=== PATIENT | male | born 2000 | race Caucasian/White ===

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

== ENCOUNTER 2021-07-10 22:42 | Emergency (ER) | payer BC, OTHER ==
[2021-07-10] MEDS ORDERED: dexAMETHasone 2 MG TAB PO STA (23:01)
[2021-07-10] MEDS ORDERED: IPRATROPIUM-ALBUTEROL 3 ML NEB INHALATION STA (23:16)
--- NOTE | 2021-07-10 23:29 | ED ---
General Adult HPI - General Chief complaint: Shortness of Breath Stated complaint: [facility] Time Seen by Provider: 07/10/21 22:45 Source: patient, RN notes reviewed, old records reviewed Mode of arrival: ambulatory - History of Present Illness Initial comments: Well-appearing 21-year-old male, alert and oriented, presents with complaints of chest tightness and cough after working with chemicals at work. Patient states that his exposure started on Saturday and he has been working with chemicals every day and other employees feel the same way. He has been wearing an N95 mask. Patient states he is short of breath with exertion. He states his chest feels tight. Chemical names are Diphenylmethane Diisocyanate and Polyurethane Resin/B-side. He does not have any hemoptysis. No abdominal pain no nausea vomiting or diarrhea. Denies fevers or headaches. -: days(s) (6) Location: chest Radiation: non-radiation Quality: other (tight) Consistency: constant Improves with: none Worsens with: other (Exertion) Associated Symptoms: cough, shortness of breath Treatments Prior to Arrival: none - Related Data Home Medications Medication Instructions Recorded Confirmed Loratadine 10 mg PO DAILY PRN 01/23/20 07/10/21 Previous Rx's Medication Instructions Recorded Albuterol Inhaler [Ventolin Hfa 2 puff INHALATION Q4H PRN #8 gm 07/10/21 Inhaler] predniSONE 50 mg PO DAILY #5 tab 07/10/21 Allergies Allergy/AdvReac Type Severity Reaction Status Date / Time No Known Allergies Allergy Verified 07/10/21 23:53 Review of Systems ROS Statement: Those systems with pertinent positive or pertinent negative responses have been documented in the HPI. ROS Other: All systems not noted in ROS Statement are negative. Past Medical History Past Medical History: No Reported History History of Any Multi-Drug Resistant Organisms: None Reported Past Surgical History: Tonsillectomy Past Psychological History: No Psychological Hx Reported Smoking Status: Vaper Past Alcohol Use History: None Reported Past Drug Use History: None Reported General Exam General appearance: alert, in no apparent distress Head exam: Present: atraumatic, normocephalic, normal inspection Eye exam: Present: normal appearance. Absent: scleral icterus, conjunctival injection, periorbital swelling, periorbital tenderness ENT exam: Present: normal exam, mucous membranes moist Neck exam: Present: full ROM. Absent: tenderness, meningismus Respiratory exam: Present: wheezes (Inspiratory and expiratory throughout). Absent: respiratory distress, rales, rhonchi, stridor, accessory muscle use Cardiovascular Exam: Present: tachycardia, normal heart sounds GI/Abdominal exam: Present: soft. Absent: distended, tenderness Extremities exam: Present: normal capillary refill Back exam: Present: full ROM. Absent: tenderness Neurological exam: Present: alert, oriented X3, normal gait Psychiatric exam: Present: normal affect, normal mood Skin exam: Present: warm, normal color, other (moist). Absent: cyanosis Course Vital Signs 07/10/21 07/10/21 07/10/21 22:43 23:23 23:30 Temperature 98 F Pulse Rate 112 H 94 96 Respiratory 18 Rate Blood Pressure 141/90 O2 Sat by Pulse 96 Oximetry 07/11/21 00:48 Temperature 97.9 F Pulse Rate 78 Respiratory 24 Rate Blood Pressure 127/77 O2 Sat by Pulse 97 Oximetry Medical Decision Making - Medical Decision Making 21-year-old male presents with chest tightness and cough after working with chemicals since Saturday. He states other employees have similar symptoms. Patient provided the material safety data sheets stating exposure to polyurethane resin having no known significant health effects or critical hazards. Exposure to diphenylmethane dilisocynate's acute health effects inc lude tightness of the chest and difficulty in breathing. Chest x-ray shows lungs are clear, heart and mediastinum are normal. Vital signs are stable and oxygen saturation is 97% on room air. Patient was given Decadron and albuterol treatments. He'll be prescribed prednisone and albuterol inhaler. I directed to discuss improved safety measures when working with chemicals. Directed to follow up with his primary care doctor. Return to emergency room if any other concerning symptoms. Case discussed with Dr. Childress Disposition Clinical Impression: Inhalation injury due to chemical Disposition: HOME SELF-CARE Condition: Good Instructions (If sedation given, give patient instructions): Shortness of Breath (ED) Additional Instructions: Take the prednisone daily as prescribed. Use the albuterol inhaler every 4 hours, 1-2 puffs as needed for wheezing or difficulty breathing. Follow-up with your primary care doctor week. Return to the emergency room with any new or concerning symptoms. Prescriptions: predniSONE 50 mg PO DAILY #5 tab Albuterol Inhaler [Ventolin Hfa Inhaler] 2 puff INHALATION Q4H PRN #8 gm PRN Reason: Dyspnea Is patient prescribed a controlled substance at d/c from ED?: No Referrals: Edna Blunt MD [Primary Care Provider] - 1-2 days Time of Disposition: 03:33
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
[2021-07-11] MEDS ORDERED: ALBUTEROL HFA INHALER INHALATION STA (00:25)
[2021-07-11 00:49] VITALS: BP 127/77; PULSE 78; RESP 24; TEMP 97.9
== END 2021-07-11 00:49 | disposition home or self-care (01) ==
LOC: EC 22:42
DX: J68.9 Unspecified respiratory condition due to chemicals, gases, fumes and vapors (principal); F17.290 Nicotine dependence, other tobacco product, uncomplicated
CPT/HCPCS: 99284; 94640 ×2; 71046; J8540